=== PATIENT | male | born 1995 | race Caucasian/White ===

== ENCOUNTER 2019-01-29 22:46 | Emergency (ER) | payer MEDICAID ==
[~2019-01-29] VITALS: Ht 188 cm; Wt 63.5 kg
[2019-01-29 23:30] VITALS: BP 130/79
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
--- NOTE | 2019-01-29 23:40 | NUR ---
RADIOLOGY AT BEDSIDE FOR XRAY
[2019-01-30] MEDS ORDERED: HYDROCODONE/APAP 5/325MG 1 EACH TABLET PO ONE (01:00)
[2019-01-30] MEDS ORDERED: HYDROCODONE/APAP 5/325MG 1 EACH TABLET ONE (01:03)
--- NOTE | 2019-01-30 01:32 | NUR ---
Patient discharged to home in stable condition. Written and verbal after care instructions given. Patient verbalizes understanding of instruction. PT AMBULATORY WITH STEADY GAIT.
== END 2019-01-30 02:16 | disposition home or self-care (01) ==
LOC: ER 22:52
DX: S62.396A Other fracture of fifth metacarpal bone, right hand, initial encounter for closed fracture (principal); F17.200 Nicotine dependence, unspecified, uncomplicated; W18.39XA Other fall on same level, initial encounter; Y93.89 Activity, other specified; Y92.89 Other specified places as the place of occurrence of the external cause; Y99.8 Other external cause status
CPT/HCPCS: 73140-TC; 73200-TC

== ENCOUNTER 2022-05-31 14:57 | Emergency (ER) | payer MEDICAID, OTHER ==
[~2022-05-31] VITALS: Ht 188 cm; Wt 70.3 kg
[2022-05-31 15:04] VITALS: BP 104/56
[2022-05-31] MEDS ORDERED: TDAP [DIPH/PERTUSSIS/TET] 0.5 ML VIAL IM ONE ×3 (15:21→15:30)
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
[2022-05-31] MEDS ORDERED: AMOX-430 PO (15:34)
[2022-05-31] MEDS ORDERED: MUPI22OI2 TP (15:34)
--- NOTE | 2022-05-31 16:32 | NUR ---
Patient discharged to home in stable condition. Written and verbal after care instructions given. Patient verbalizes understanding of instruction.
== END 2022-05-31 16:33 | disposition home or self-care (01) ==
LOC: ER 15:10
DX: S60.211A Contusion of right wrist, initial encounter (principal); Z87.891 Personal history of nicotine dependence; W54.0XXA Bitten by dog, initial encounter; Y93.89 Activity, other specified; Y92.89 Other specified places as the place of occurrence of the external cause; Y99.8 Other external cause status
CPT/HCPCS: 73110; 90715